=== PATIENT | female | born 1940 | race Caucasian/White ===

== ENCOUNTER 2024-08-16 06:35 | Outpatient (CLI) | payer MEDICARE, SELFPAY ==
--- NOTE | ~2024-08-16 | MR_ITS ---
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 Status post right mastectomy. Breast pain. Possible impla nt rupture. TECHNIQUE: MRI of the breasts perform using standard protocol pre-and post IV contrast with the follo wing sequences: Axial T2 STIR, axial T1, axial vibrant T1 with fat suppression precontrast and multip hasic postcontrast. 18 cc MultiHance administered intravenously. COMPARISON: No prior studies for comparison. FINDINGS: There is a right breast implant. There are abnormal folds in the implant with subcapsular l ine sign, consistent with intracapsular implant rupture. There is mild background parenchymal enhance ment. There is moderate enhancement surrounding the implant, likely fibrosis. No enhancing lesions fo llowing contrast administration. No areas of enhancement meeting threshold criteria on CAD analysis. No evidence of signal abnormalities in the axillary or internal mammary node distributions. LEFT BREAST: No signal abnormalities on precontrast sequences. There is moderate background parenchy mal enhancement. No enhancing lesions following contrast administration. No areas of enhancement m eeting threshold criteria on CAD analysis. No evidence of signal abnormalities in the axillary or i nternal mammary node distributions.] IMPRESSION: 1: No evidence for malignancy in either breast. 2: Right breast intracapsular implant rupture. Recommend correlation with bilateral mammogram. BI-RADS CATEGORY 0 - INCOMPLETE STUDY, NEED ADDITIONAL IMAGING EVALUATION. Reviewed, dictated and finalized at location B. FITTER
== END 2024-08-16 06:36 | disposition home or self-care (01) ==
PROVIDERS: PCP Family Medicine; Visit Provider Plastic Surgery
DX: T85.49XA Other mechanical complication of breast prosthesis and implant, initial encounter (principal); N64.4 Mastodynia; Z85.3 Personal history of malignant neoplasm of breast
CPT/HCPCS: 77049; A9577; C8908